=== PATIENT | male | born 1970 | race Caucasian/White ===

== ENCOUNTER 2021-04-19 11:04 | Emergency (ER) | payer OTHER ==
[2021-04-19 14:17] LABS: HEMOGLOBIN 14.9 gm/dl (14.0-17.5); RED BLOOD COUNT 4.83 M/UL (4.20-5.50); WHITE BLOOD COUNT 9.5 K/UL (4.5-11.0)
[2021-04-19 15:10] LABS: BUN/CREATININE RATIO 24 (0-10)
[2021-04-19] MEDS ORDERED: DOXYCYCLINE HY100 M2 PO (17:59)
== END 2021-04-19 18:55 | disposition home or self-care (01) ==
LOC: ER1 11:04
PROVIDERS: Physician Assistant
DX: R07.89 Other chest pain (principal); R00.2 Palpitations; L03.211 Cellulitis of face; H60.11 Cellulitis of right external ear; E86.0 Dehydration
CPT/HCPCS: 71045; 80053; 80307; 82550; 82553; 83735; 83874; 84439; 84443; 84484; 85025; 85379; 93005; 99285; J7030

== ENCOUNTER → 2022-02-27 | Outpatient (CLI) | payer OTHER ==
[~2022-02-27] MED LIST: DOXYCYCLINE HY100 M2 PO
== END ==
LOC: KOH-I 15:48
DX: R06.02 Shortness of breath (principal)
CPT/HCPCS: 71046

== ENCOUNTER → 2022-03-20 | Outpatient (CLI) | payer OTHER | LOC: ECHO 10:30 | DX: R06.02 Shortness of breath (principal); I51.7 Cardiomegaly | CPT/HCPCS: ECHO; 93306 ==